=== PATIENT | female | born 1980 | race African-American/Black ===

== ENCOUNTER 2018-11-17 10:51 | Emergency (ER) | payer OTHER ==
[~2018-11-17] VITALS: Ht 172.7 cm; Wt 71.7 kg
[2018-11-17 10:51] VITALS: BP 129/88
--- NOTE | 2018-11-17 11:01 | NUR ---
PT AMBULATES TO BED 8
--- NOTE | 2018-11-17 11:10 | NUR ---
Note undone in EDM - 11/17/18 at 1118 by MED BIB SELF. AAO X 4. PT C/O LOW BACK PAIN 8/10 ACHING, NONRADIATING FOR 6 DAYS. DIFFICULTY AMBULATING. TRIED ICE AND MEDICATION AT HOME WITH NO RELIEF. PT IS ON BACK BRACE. UNABLE TO FULLY BEND. EQUAL BILATERAL STRENGTH TO UPPER AND LOWER EXTREMITIES. HOB UP. ON LOW BED POSITION, LOCKED. BED SIDE RAILS UP X1. MD COLON MADE AWARE OF PT STATUS.
--- NOTE | 2018-11-17 11:10 | NUR ---
BIB SELF. AAO X 4. PT C/O LOW BACK PAIN 8/10 ACHING, NONRADIATING FOR 6 DAYS. DIFFICULTY AMBULATING. TRIED ICE AND MEDICATION AT HOME WITH NO RELIEF. PT IS ON BACK BRACE. DENIES TRAUMA OR INJURY. UNABLE TO FULLY BEND. EQUAL BILATERAL STRENGTH TO UPPER AND LOWER EXTREMITIES. HOB UP. ON LOW BED POSITION, LOCKED. BED SIDE RAILS UP X1. ER MADE AWARE OF PT STATUS.
[2018-11-17] MEDS ORDERED: LORazepam 2 MG/ML VIAL IM ONE (12:15)
[2018-11-17] MEDS ORDERED: KETOROLAC 60 MG/2 ML VIAL IM ONE (12:15)
[2018-11-17] MEDS ORDERED: LACTULOSE 20 GM/30 ML UDC PO ONE (13:15)
[2018-11-17 13:50] VITALS: BP 119/76
--- NOTE | 2018-11-17 13:50 | NUR ---
Patient discharged with v/s stable. Written and verbal after care instructions given and explained. Patient alert, oriented and verbalized understanding of instructions. Ambulatory with steady gait. All questions addressed prior to discharge. ID band removed. Patient advised to follow up with PMD. Rx of Colace Valtaren given. Patient educated on indication of medication including possible reaction and side effects. Opportunity to ask questions provided and answered.
== END 2018-11-17 13:50 | disposition home or self-care (01) ==
LOC: MED 10:51
DX: M54.5 Low back pain (principal); K59.00 Constipation, unspecified
CPT/HCPCS: 72100; 81002; 81025; 96372; 99283; J1885; J2060

== ENCOUNTER 2020-10-03 16:26 | Emergency (ER) | payer OTHER ==
[~2020-10-03] VITALS: Ht 172.7 cm; Wt 91.2 kg
[2020-10-03 16:32] VITALS: BP 132/77
--- NOTE | 2020-10-03 16:55 | NUR ---
39 Y/O F C/O ABD PAIN THAT STARTED 09/30/20 IN [facility] IS NOW RADIATING TO RLQ AND CENTER OF ABD. 09/30 DULL PAIN, HAS BEEN TAKING SUMATRIPTAN 50MG PM, LAST DOSE WAS 10/02/20. NO N&V, LAST BM WAS NORMAL, SOFT AND EASY TO PASS 10/02/20. NO BURNING OR PAIN DURING URINATION. URINE WAS COLLECTED. PMH: BREAST CANCER IN 2017. PT DENIES CONTACT WITH ANYONE COVID POSTIVE AND SOB, COUGH OR CHEST PAIN SYMPTOMS.
[2020-10-03] MEDS ORDERED: NACL 0.9% 1,000 ML IV SCH (17:05)
[2020-10-03] MEDS ORDERED: ONDANSETRON 4 MG/2 ML VIAL IVP ONE (17:05)
[2020-10-03 17:27] LABS: BASOPHILS % (AUTO) 0.6 % (0.0-2.0); EOSINOPHILS # (AUTO) 0.2 K/uL (0-0.4); EOSINOPHILS % (AUTO) 2.9 % (0.0-4.0); HEMATOCRIT 38.9 % (36-48); HEMOGLOBIN 12.7 g/dL (12.0-16.0); LYMPHOCYTES # (AUTO) 2.2 K/uL (2.5-16.5); LYMPHOCYTES % (AUTO) 33.2 % (20.5-51.1); MEAN CORPUSCULAR HEMOGLOBIN 29 pg (27-31); MEAN CORPUSCULAR HGB CONC 33 g/dL (33-37); MEAN CORPUSCULAR VOLUME 88.9 fL (80-94); MONOCYTES # (AUTO) 0.4 K/uL (0.8-1.0); MONOCYTES % (AUTO) 6.5 % (1.7-9.3); NEUTROPHILS # (AUTO) 3.8 K/uL (1.8-7.7); NEUTROPHILS % (AUTO) 56.8 % (42.2-75.2); PLATELET COUNT (AUTO) 263 K/uL (140-450); RED BLOOD CELL COUNT(AUTO) 4.37 MIL/uL (4.20-5.40); RED CELL DISTRIBUTION WIDTH 13.6 % (11.6-13.7); WHITE BLOOD COUNT (AUTO) 6.6 K/uL (4.8-10.8)
--- NOTE | 2020-10-03 17:29 | NUR ---
IV ESTABLISHED, L AC 20G WITH NS BOLUS. PT SIGNED CONSENT FOR CT SCAN AND WAS PUT IN CHART.
[2020-10-03 17:48] LABS: ALBUMIN 3.8 g/dL (3.4-5.0); CARBON DIOXIDE 25.7 mmol/L (21-32); CREATININE 0.9 mg/dL (0.6-1.3); POTASSIUM 3.7 mmol/L (3.5-5.1); TOTAL BILIRUBIN 0.3 mg/dL (0.0-1.0)
--- NOTE | 2020-10-03 19:15 | NUR ---
RECEIVED TRANSDFER OF CARE REPORT FROM PENG JACOBS FOR CONTINUATION OF CARE.
--- NOTE | 2020-10-03 19:45 | NUR ---
PT WAS FOUND AWAKE SITTING ON BED. PT STATES NO DISTRESS AND NO DISCOMFORT. BED LOCKED IN LOWEST POSITION.
[2020-10-03 19:51] VITALS: BP 140/79
--- NOTE | 2020-10-03 19:51 | NUR ---
Patient discharged with v/s stable. Written and verbal after care instructions given and explained. Patient alert, oriented and verbalized understanding of instructions. Ambulatory with steady gait. All questions addressed prior to discharge. ID band removed. Patient advised to follow up with PMD. Rx of TRAMADOL AND ZOFRAN given. Patient educated on indication of medication including possible reaction and side effects. Opportunity to ask questions provided and answered.
--- NOTE | 2020-10-03 19:51 | NUR ---
IV removed, catheter intact and site benign. Applied folded 4x4 gauze and tape to stop bleeding.
== END 2020-10-03 19:51 | disposition home or self-care (01) ==
LOC: MED 16:26
DX: D25.9 Leiomyoma of uterus, unspecified (principal); G43.909 Migraine, unspecified, not intractable, without status migrainosus; Z85.3 Personal history of malignant neoplasm of breast
CPT/HCPCS: 36415; 74177; 80053; 81002; 81025; 83690; 85025; 96360; 96361; 99285; J7030; Q9967; J2405